=== PATIENT | male | born 1975 | race Caucasian/White ===

== ENCOUNTER 2016-10-10 01:15 | Emergency (ER) | payer SELFPAY ==
[~2016-10-10] VITALS: Ht 167.6 cm; Wt 72.6 kg
[2016-10-10 01:24] VITALS: BP 148/96
--- NOTE | 2016-10-10 04:45 | NUR ---
TO ER BED 3
[2016-10-10] MEDS ORDERED: ACETAMINOPHEN/CODEINE 300/30MG 1 TAB PO ONE (05:00)
[2016-10-10] MEDS ORDERED: NEOMYCIN/POLYMYXIN/BACITRACIN 0.9 GM/1 PKT TP ONE (05:00)
[2016-10-10] MEDS ORDERED: LIDOCAINE/EPI 1% 1:100000 20 ML VIAL INJ ONE (05:00)
--- NOTE | 2016-10-10 05:11 | NUR ---
41Y M BIB SPOUSE C/O OF LACERATION ON HIS LEFT LEG AFTER A COMPRESSOR FELL ON HIS LEFT LEG HALF HOUR AGO, BLEEDING WAS CONTROLLED.
[2016-10-10] MEDS ORDERED: LIDOCAINE/EPI 2% 1:100000 20 ML VIAL INJ ONE (05:57)
[2016-10-10 06:50] VITALS: BP 135/80
--- NOTE | 2016-10-10 06:50 | NUR ---
Patient discharged with v/s stable. Written and verbal after care instructions given and explained. Patient alert, oriented and verbalized understanding of instructions. Ambulatory with CRUTCHES. All questions addressed prior to discharge. ID band removed. Patient advised to follow up with PMD. Rx of NAPROSYN given. Patient educated on indication of medication including possible reaction and side effects. Opportunity to ask questions provided and answered.
== END 2016-10-10 06:50 | disposition home or self-care (01) ==
LOC: MED 01:15
DX: S71.112A Laceration without foreign body, left thigh, initial encounter (principal); S80.12XA Contusion of left lower leg, initial encounter; W22.8XXA Striking against or struck by other objects, initial encounter; W45.8XXA Other foreign body or object entering through skin, initial encounter; Y93.89 Activity, other specified; Y92.89 Other specified places as the place of occurrence of the external cause; Y99.8 Other external cause status
CPT/HCPCS: 12002; 90471; 90715; 99283; J2001